=== PATIENT | female | born 1990 | race Caucasian/White ===

== ENCOUNTER 2019-12-31 20:07 | Emergency (ER) | payer OTHER ==
[~2019-12-31] VITALS: Ht 170.2 cm; Wt 64.3 kg
[2019-12-31] MEDS ORDERED: ZOLO100T PO (20:15)
[2019-12-31] MEDS ORDERED: LEVO200T4 PO (20:15)
[2019-12-31] MEDS ORDERED: IBUP40TA PO (20:16)
--- NOTE | 2019-12-31 21:44 | REPVR ---
PROCEDURE INFORMATION: Exam: CT Head Without Contrast Exam date and time: 12/31/2019 9:06 PM Age: 29 years old Clinical indication: Injury or trauma; Fall; Blunt trauma (contusions or hematomas); Additional info: Head injury, loc TECHNIQUE: Imaging protocol: Computed tomography of the head without contrast. Radiation optimization: All CT scans at this facility use at least one of these dose optimization techniques: automated exposure control; mA and/or kV adjustment per patient size (includes targeted exams where dose is matched to clinical indication); or iterative reconstruction. COMPARISON: No relevant prior studies available. FINDINGS: Brain: There is no CT evidence for an acute large vessel territorial infarct. No acute intracranial hemorrhage is seen. The cortical gyration pattern, basal ganglia, thalami, brainstem, and cerebellum are normal in appearance. Cerebral ventricles: Normal. No hydrocephalus. Bones/joints: The skull is intact. No suspicious osteolytic or osteoblastic lesion. Paranasal sinuses: The right maxillary sinus is hypoplastic. The imaged sinuses are well aerated. The maxillary sinuses were not fully imaged. Mastoid air cells: Clear. Auditory system: The middle ear spaces are clear. Soft tissues: Unremarkable. No soft tissue fluid collection. IMPRESSION: No acute intracranial abnormality. Electronically signed by: Jaun Kirk On 12/31/2019 21:44:29 PM
--- NOTE | 2019-12-31 21:44 | REPVR ---
PROCEDURE INFORMATION: Exam: CT Cervical Spine Without Contrast Exam date and time: 12/31/2019 9:06 PM Age: 29 years old Clinical indication: Injury or trauma; Fall; Blunt trauma; Additional info: Head injury, loc TECHNIQUE: Imaging protocol: Computed tomography images of the cervical spine without contrast. Radiation optimization: All CT scans at this facility use at least one of these dose optimization techniques: automated exposure control; mA and/or kV adjustment per patient size (includes targeted exams where dose is matched to clinical indication); or iterative reconstruction. COMPARISON: No relevant prior studies available. FINDINGS: Bones/joints: There is a reversal of the normal cervical lordosis. There is no fracture or subluxation. The vertebral body heights are preserved. There is hypertrophy of both transverse processes of C7. Incidental note is made of a small bone island in the right side of the C7 vertebral body. Discs/Spinal canal/Neural foramina: The disc heights are preserved. No disc herniation, spinal canal stenosis, or neural foraminal stenosis is identified at any of the imaged levels. The facet joints are unremarkable. Prevertebral Space: No prevertebral soft tissue swelling. Soft tissues: Unremarkable. No soft tissue fluid collection. Lungs: The imaged lung apices are clear. The lungs were not fully imaged. IMPRESSION: Reversal of the normal cervical lordosis, but no fracture or subluxation in the cervical spine. Electronically signed by: Jaun Kirk On 12/31/2019 21:44:20 PM
--- NOTE | 2019-12-31 23:29 | REPVR ---
PROCEDURE INFORMATION: Exam: XR Lumbosacral Spine, 4 or 5 Views Exam date and time: 12/31/2019 11:14 PM Age: 29 years old Clinical indication: Pain and injury or trauma; Fall; Sprain or strain, lumbar ligaments; Low back pain TECHNIQUE: Imaging protocol: XR of the lumbosacral spine, 4 or 5 views. COMPARISON: No relevant prior studies available. FINDINGS: Bones/joints: L1 is labeled as the vertebral body that bears rudimentary ribs and L5 is labeled as the last lumbar-type vertebral body above the last well-defined intervertebral disc space. The alignment of the lumbar spine is normal. No fracture or subluxation is noted. The vertebral body heights are preserved. The disc spaces are maintained. The facet joints are unremarkable. Soft tissues: Unremarkable. IMPRESSION: No fracture or subluxation in the lumbar spine. Electronically signed by: Jaun Kirk On 12/31/2019 23:29:10 PM
--- NOTE | 2019-12-31 23:29 | REPVR ---
PROCEDURE INFORMATION: Exam: XR Sacrum and Coccyx, 2 or More Views Exam date and time: 12/31/2019 11:14 PM Age: 29 years old Clinical indication: Pain and injury or trauma; Fall; Sprain or strain of sacroiliac joint; Pain in coccyx area TECHNIQUE: Imaging protocol: XR of the sacrum and coccyx, 2 or more views. COMPARISON: No relevant prior studies available. FINDINGS: Bones/joints: In the lateral view, there appears to be a cortical step-off in the 5th sacral segment, which is suspicious for a nondisplaced fracture. The sacrococcygeal alignment is normal. No diastasis of the sacroiliac joints or pubic symphysis is noted. Soft tissues: Unremarkable. IMPRESSION: Cortical step-off in the 5th sacral segment, which is suspicious for a nondisplaced fracture. Electronically signed by: Jaun Kirk On 12/31/2019 23:29:42 PM
[2020-01-01] VITALS: BP 124/65
== END 2020-01-01 00:34 | disposition home or self-care (01) ==
LOC: M ED 20:07
DX: S06.0X1A Concussion with loss of consciousness of 30 minutes or less, initial encounter (principal); S00.93XA Contusion of unspecified part of head, initial encounter; S30.0XXA Contusion of lower back and pelvis, initial encounter; S32.10XA Unspecified fracture of sacrum, initial encounter for closed fracture; W00.0XXA Fall on same level due to ice and snow, initial encounter; Y92.019 Unspecified place in single-family (private) house as the place of occurrence of the external cause; Y93.9 Activity, unspecified; Y99.9 Unspecified external cause status; E05.90 Thyrotoxicosis, unspecified without thyrotoxic crisis or storm; F41.9 Anxiety disorder, unspecified; F17.200 Nicotine dependence, unspecified, uncomplicated; Z79.899 Other long term (current) drug therapy

== ENCOUNTER → 2020-07-04 | Outpatient (CLI) | payer OTHER ==
[~2020-07-04] MED LIST: IBUP1TAB5 PO; LEVO200T4 PO; ZOLO100T PO
[2020-07-04 16:13] LABS: BASO # 0.1 10^3/uL (0.0-0.2); BASO % 0.9 % (0.0-1.0); EOS # 0.1 10^3/uL (0.0-0.5); EOS % 2.6 % (0.0-3.0); HEMATOCRIT 41.7 % (36.0-47.0); HEMOGLOBIN 13.2 g/dl (12.0-15.5); LYMPH # 1.5 10^3/uL (1.5-5.0); LYMPH % 27.5 % (24.0-44.0); MEAN CORPUSCULAR HGB CONC 31.7 g/dl (32.0-36.5); MEAN CORPUSCULAR VOLUME 94.8 fl (80.0-96.0); MONO # 0.5 10^3/uL (0.0-0.8); MONO % 8.6 % (2.0-8.0); NEUTROPHILS # 3.3 10^3/uL (1.5-8.5); NEUTROPHILS % 60.2 % (36.0-66.0); PLATELET COUNT, AUTOMATED 214 10^3/uL (150-450); WHITE BLOOD COUNT 5.5 10^3/uL (4.0-10.0)
[2020-07-04 16:19] LABS: ALT/SGPT 15 U/L (12-78); BILIRUBIN,TOTAL 0.6 MG/DL (0.2-1.0); BLOOD UREA NITROGEN 6 MG/DL (7-18); CALCIUM LEVEL 9.2 MG/DL (8.5-10.1); CARBON DIOXIDE LEVEL 25 MEQ/L (21-32); CHLORIDE LEVEL 108 MEQ/L (98-107); CREATININE FOR GFR 0.56 MG/DL (0.55-1.30); FREE T4 1.22 NG/DL (0.76-1.46); GLOMERULAR FILTRATION RATE > 60.0 (>60); GLUCOSE, FASTING 78 MG/DL (70-100); POTASSIUM SERUM 4.4 MEQ/L (3.5-5.1); SODIUM LEVEL 138 MEQ/L (136-145); TOTAL PROTEIN 7.5 GM/DL (6.4-8.2)
== END ==
LOC: M WUC 11:01
PROVIDERS: ATTEND Physician Assistant
DX: E06.3 Autoimmune thyroiditis (principal); R42 Dizziness and giddiness

== ENCOUNTER → 2020-07-16 | Outpatient (CLI) | payer OTHER ==
[2020-07-16 20:58] LABS: BLOOD UREA NITROGEN 7 MG/DL (7-18); CALCIUM LEVEL 8.7 MG/DL (8.5-10.1); CARBON DIOXIDE LEVEL 28 MEQ/L (21-32); CHLORIDE LEVEL 110 MEQ/L (98-107); CREATININE FOR GFR 0.56 MG/DL (0.55-1.30); GLOMERULAR FILTRATION RATE > 60.0 (>60); GLUCOSE, FASTING 91 MG/DL (70-100); POTASSIUM SERUM 3.9 MEQ/L (3.5-5.1); SODIUM LEVEL 142 MEQ/L (136-145)
== END ==
LOC: M WUC 15:36
PROVIDERS: ATTEND Family Medicine
DX: N17.9 Acute kidney failure, unspecified (principal)